=== PATIENT | female | born 1980 | race Caucasian/White ===

== ENCOUNTER → 2016-10-07 | Outpatient (CLI) | payer BC ==
--- NOTE | 2016-10-07 12:43 | XR ---
EXAMINATION TYPE: XR ankle complete RT , 3 VIEWS DATE OF EXAM ORDERED: 10/07/2016 HISTORY: SPRAIN. COMPARISON: None. FINDINGS: No fracture, dislocation or joint effusion is seen. IMPRESSION: NORMAL RIGHT ANKLE.
== END | disposition home or self-care (01) ==
LOC: RADXRMAIN 11:42
PROVIDERS: ATTEND Family Medicine
DX: S93.401A Sprain of unspecified ligament of right ankle, initial encounter (principal); X58.XXXA Exposure to other specified factors, initial encounter

== ENCOUNTER 2020-11-16 09:37 | Emergency (ER) | payer BC ==
[2020-11-16 10:00] VITALS: RESP 18
[2020-11-16] MEDS ORDERED: SODIUM CHLORIDE 0.9% 1,000 ML IV STA (10:24)
--- NOTE | 2020-11-16 10:42 | ED ---
General Adult HPI - General Chief complaint: Syncope Stated complaint: syncope Time Seen by Provider: 11/16/20 09:41 Source: patient, EMS, RN notes reviewed Mode of arrival: EMS Limitations: no limitations - History of Present Illness Initial comments: 40-year-old presents emergency Department with chief complaint of syncopal episode. Patient had try EMS at her house for an infusion for COVID-19. Patient states that she associated can have an IV placed and they were attempting when she passed out. She states she felt very hot flushed feeling community health program coordinator advised patient to laying back. The patient episode 2 in which she became unresponsive, passed out at that time. Patient has no complaints of chest pain, palpitations, nausea vomiting no headache no blurred vision no focal weakness. She's had some intermittent shortness breath with her COVID-19. - Related Data Allergies Allergy/AdvReac Type Severity Reaction Status Date / Time acetaminophen [From Percocet] AdvReac Hallucinati Verified 11/16/20 10:01 ons oxycodone [From Percocet] AdvReac Hallucinati Verified 11/16/20 10:01 ons red dye AdvReac Anaphylaxis Verified 11/16/20 10:01 Review of Systems ROS Statement: Those systems with pertinent positive or pertinent negative responses have been documented in the HPI. ROS Other: All systems not noted in ROS Statement are negative. Past Medical History Additional Past Medical History / Comment(s): migraines History of Any Multi-Drug Resistant Organisms: None Reported Past Surgical History: Appendectomy, Cholecystectomy Past Psychological History: Anxiety Smoking Status: Never smoker Past Alcohol Use History: Occasional Past Drug Use History: Marijuana General Exam Limitations: no limitations General appearance: alert, in no apparent distress Head exam: Present: atraumatic, normocephalic, normal inspection Eye exam: Present: normal appearance, PERRL, EOMI. Absent: scleral icterus, conjunctival injection, periorbital swelling ENT exam: Present: normal exam, normal oropharynx, mucous membranes moist Neck exam: Present: normal inspection, full ROM. Absent: tenderness, meningismus, lymphadenopathy Respiratory exam: Present: normal lung sounds bilaterally. Absent: respiratory distress, wheezes, rales, rhonchi, stridor Cardiovascular Exam: Present: regular rate, normal rhythm, normal heart sounds. Absent: systolic murmur, diastolic murmur, rubs, gallop, clicks Neurological exam: Present: alert, oriented X3, CN II-XII intact Skin exam: Present: warm, dry, intact, normal color. Absent: rash Course Vital Signs 11/16/20 09:53 Temperature 98.6 F Pulse Rate 95 Respiratory 18 Rate Blood Pressure 124/86 O2 Sat by Pulse 97 Oximetry Medical Decision Making - Medical Decision Making 40-year-old presented for episode after having IV place. Vital he been stable, labs unremarkable. Patient does not want infusion will be discharged in stable condition return parameters were discussed. - Lab Data Result diagrams: 11/16/20 10:37 11/16/20 10:37 Lab Results 11/16/20 11/16/20 11/16/20 Range/Units 10:37 10:37 10:37 WBC 5.3 (3.8-10.6) k/uL RBC 3.93 (3.80-5.40) m/uL Hgb 13.3 (11.4-16.0) gm/dL Hct 39.0 (34.0-46.0) % MCV 99.3 (80.0-100.0) fL MCH 33.9 (25.0-35.0) pg MCHC 34.2 (31.0-37.0) g/dL RDW 12.7 (11.5-15.5) % Plt Count 218 (150-450) k/uL MPV 7.4 Neutrophils % 69 % Lymphocytes % 19 % Monocytes % 8 % Eosinophils % 1 % Basophils % 1 % Neutrophils # 3.6 (1.3-7.7) k/uL Lymphocytes # 1.0 (1.0-4.8) k/uL Monocytes # 0.4 (0-1.0) k/uL Eosinophils # 0.1 (0-0.7) k/uL Basophils # 0.0 (0-0.2) k/uL Sodium 139 (137-145) mmol/L Potassium 4.1 (3.5-5.1) mmol/L Chloride 107 (98-107) mmol/L Carbon Dioxide 22 (22-30) mmol/L Anion Gap 10 mmol/L BUN 11 (7-17) mg/dL Creatinine 0.60 (0.52-1.04) mg/dL Est GFR (CKD-EPI)AfAm >90 (>60 ml/min/1.73 sqM) Est GFR (CKD-EPI)NonAf >90 (>60 ml/min/1.73 sqM) Glucose 134 H (74-99) mg/dL Calcium 8.9 (8.4-10.2) mg/dL Total Bilirubin 0.5 (0.2-1.3) mg/dL AST 68 H (14-36) U/L ALT 83 H (4-34) U/L Alkaline Phosphatase 80 (38-126) U/L Troponin I <0.012 (0.000-0.034) ng/mL Total Protein 7.4 (6.3-8.2) g/dL Albumin 4.1 (3.5-5.0) g/dL Disposition Clinical Impression: Vasovagal syncope Disposition: HOME SELF-CARE Condition: Stable Instructions (If sedation given, give patient instructions): Syncope (ED) Additional Instructions: Please return to the Emergency Department if symptoms worsen or any other con cerns. Is patient prescribed a controlled substance at d/c from ED?: No Referrals: Jb Lowry DO [Primary Care Provider] - 1-2 days
[2020-11-16 10:53] LABS: ALT 83 U/L (4-34); AST 68 U/L (14-36); African American GFR (CKD) >90 (>60 ml/min/1.73 sqM); Albumin 4.1 g/dL (3.5-5.0); Alkaline Phosphatase 80 U/L (38-126); Anion Gap 10 mmol/L; Blood Urea Nitrogen 11 mg/dL (7-17); Calcium 8.9 mg/dL (8.4-10.2); Carbon Dioxide 22 mmol/L (22-30); Chloride 107 mmol/L (98-107); Glucose 134 mg/dL (74-99); Non-African American GFR(CKD) >90 (>60 ml/min/1.73 sqM); Potassium 4.1 mmol/L (3.5-5.1); Sodium 139 mmol/L (137-145); Total Bilirubin 0.5 mg/dL (0.2-1.3); Total Protein 7.4 g/dL (6.3-8.2)
[2020-11-16 11:00] LABS: Basophils % (A) 1 %; Eosinophils # (A) 0.1 k/uL (0-0.7); Eosinophils % (A) 1 %; HGB 13.3 gm/dL (11.4-16.0); Lymphocytes % (A) 19 %; MCH 33.9 pg (25.0-35.0); MCHC 34.2 g/dL (31.0-37.0); MCV 99.3 fL (80.0-100.0); Mean Platelet Volume 7.4; Monocytes # (A) 0.4 k/uL (0-1.0); Monocytes % (A) 8 %; Neutrophils # (A) 3.6 k/uL (1.3-7.7); Neutrophils % (A) 69 %; Platelet Count 218 k/uL (150-450); RBC 3.93 m/uL (3.80-5.40); RDW 12.7 % (11.5-15.5); WBC 5.3 k/uL (3.8-10.6)
--- NOTE | 2020-11-16 11:58 | XR ---
EXAMINATION TYPE: XR chest 2V DATE OF EXAM: 11/16/2020 COMPARISON: None HISTORY: 40 year old female syncope TECHNIQUE: PA and lateral views FINDINGS: The cardiomediastinal silhouette, aorta, and pulmonary vasculature are within normal limits. Lungs an d pleural spaces are clear. IMPRESSION: No acute cardiopulmonary process.
[2020-11-16 12:49] VITALS: BP 115/92; PULSE 68; TEMP 98.2
== END 2020-11-16 12:52 | disposition home or self-care (01) ==
LOC: EC 09:37
DX: R55 Syncope and collapse (principal); G43.909 Migraine, unspecified, not intractable, without status migrainosus; F41.9 Anxiety disorder, unspecified; F12.90 Cannabis use, unspecified, uncomplicated
CPT/HCPCS: 36415; 71046; 80053; 84484; 85025; 93005; 96360; 99284

== ENCOUNTER → 2021-06-28 | Outpatient (CLI) | payer BC ==
--- NOTE | 2021-06-28 20:27 | CT ---
EXAMINATION TYPE: CT chest wo con CT DLP: 796.4 mGycm, Automated exposure control for dose reduction was used. DATE OF EXAM: 06/28/2021 2:53 PM COMPARISON: None CLINICAL INDICATION:Female, 40 years old with history of J84.10 Pulmonary fibrosis, pulmonary fibrosi s, bronchitis TECHNIQUE: Multiple axial images were obtained through the chest without IV contrast utilizing high-r esolution CT protocol. FINDINGS: LUNGS: There is no evidence of interstitial thickening, significant groundglass opacity, honeycombing or architectural distortion in the lungs. No bronchiectasis. No acute area of infiltrative or consol idative change. Suggestion of pulmonary nodules within the visualized lung including right upper lobe 5 mm series 3 image 6. LARGE AIRWAYS: Central airways are patent. No dynamic airway collapse on expiratory imaging. HEART: Size within normal limits. MEDIASTINUM: No gross evidence of adenopathy. VASCULATURE: No aortic aneurysm. MUSCULOSKELETAL: No acute osseous abnormalities SOFT TISSUES/LYMPH NODES: Unremarkable. LOWER NECK: No significant findings. UPPER ABDOMEN: Diffuse low-attenuation to the liver parenchyma. IMPRESSION: 1. No evidence for pulmonary fibrosis. 2. Hepatic steatosis. 3. Right upper lobe 5 mm pulmonary nodule. Incidentally detected nodules of this size are generally c onsidered benign in individuals without concomitant risk factors such as smoking history or other ris k factors for malignancy. Follow up imaging is generally not performed, in accordance with Fleischner Society guidelines. In high-risk patients, a [address] thorax can be considered.
== END | disposition home or self-care (01) ==
LOC: RADCTMAIN 14:37
PROVIDERS: ATTEND Internal Medicine Critical Care Medicine
DX: K76.0 Fatty (change of) liver, not elsewhere classified (principal); R91.8 Other nonspecific abnormal finding of lung field
CPT/HCPCS: 71250

== ENCOUNTER → 2021-08-19 | Outpatient (CLI) | payer BC ==
--- NOTE | 2021-08-19 14:04 | US ---
EXAMINATION TYPE: US pelvis complete transvag DATE OF EXAM: 08/19/2021 COMPARISON: NONE CLINICAL HISTORY: R10.31 RIGHT LOWER QUADRANT PAIN. Pelvic pain x 3 months. LMP: 08/02/21. . TECHNIQUE: . Transabdominal and trasnvaginal sonographic images of the pelvis were acquired. Date of LMP: 08/02/21 EXAM MEASUREMENTS: Uterus: 8.0 x 6.3 x 5.2 cm Endometrial Stripe: 0.8 cm Right Ovary: 3.9 x 3.3 x 2.2 cm Left Ovary: 3.3 x 2.4 x 1.7 cm 1. Uterus: Retroverted Multiple nabothian cysts seen in cervix 2. Endometrium: wnl 3. Right Ovary: Complex cyst seen measuring 1.1 x 1.3 x 1.0 cm 4. Left Ovary: wnl 5. Bilateral Adnexa: wnl 6. Posterior cul-de-sac: wnl IMPRESSION: Complex cyst right ovary. Follow-up study in 6 weeks is advised.
== END | disposition home or self-care (01) ==
LOC: RADUSWWP 13:01
PROVIDERS: ATTEND Family Medicine
DX: N83.201 Unspecified ovarian cyst, right side (principal); R10.31 Right lower quadrant pain
CPT/HCPCS: 76830; 76856

== ENCOUNTER → 2021-09-07 | Outpatient (CLI) | payer BC ==
--- NOTE | 2021-09-08 07:24 | US ---
EXAMINATION TYPE: US mass soft tissue chest/back DATE OF EXAM: 09/07/2021 COMPARISON: NONE CLINICAL HISTORY: R22.2 SWELLING, MASS ANS LUMP TRUNK. Swelling, palpable lump right lower back x 3 m onths. Scanned patient's right lower back at palpable area of concern. No abnormalities seen by ultrasound at this time. IMPRESSION: No distinct abnormality appreciated at this time.
== END | disposition home or self-care (01) ==
LOC: RADUSWWP 15:24
PROVIDERS: ATTEND Family Medicine
DX: R22.2 Localized swelling, mass and lump, trunk (principal)

== ENCOUNTER 2022-01-11 08:23 | Day surgery (SDC) | payer BC ==
[2022-01-09 10:11] VITALS: BMI 33.4
--- NOTE | 2022-01-11 07:36 | P.GSHP ---
History of Present Illness H&P Date: 01/11/22 CHIEF COMPLAINT: Colon screen HISTORY OF PRESENT ILLNESS: The patient is a 41-year-old female who presents for colon screen. Lower endoscopy was offered for further evaluation and management. PAST MEDICAL HISTORY: Please see list. PAST SURGICAL HISTORY: Please see list. MEDICATIONS: Please see list. ALLERGIES: Please see list. SOCIAL HISTORY: No illicit drug use FAMILY HISTORY: No reports of Crohn disease or ulcerative colitis. REVIEW OF ORGAN SYSTEMS: CONSTITUTIONAL: No reports of fevers or chills. PHYSICAL EXAM: VITAL SIGNS: Stable GENERAL: Well-developed pleasant in no acute distress. HEENT: No scleral icterus. Extraocular movements grossly intact. Moist buccal mucosa. NECK: Supple without lymphadenopathy. CHEST: Unlabored respirations. Equal bilateral excursions. CARDIOVASCULAR: Regular rate and rhythm. Distal 2+ pulses. ABDOMEN: Soft, nontender, nondistended. MUSCULOSKELETAL: No clubbing, cyanosis, or edema. ASSESSMENT: 1. Colon screen. PLAN: 1. 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, 2 seizures with COVID 11/2020, still has some SOB, change in bowel movements since 11/2021, had infection after appendectomy- was on a lot of antibiotics-[place], History of Any Multi-Drug Resistant Organisms: None Reported Past Surgical History: Appendectomy, Breast Surgery, Cholecystectomy Additional Past Surgical History / Comment(s): breast reduction, colonoscopy Past Anesthesia/Blood Transfusion Reactions: Family History of Problems w/ Anesthesia Additional Past Anesthesia/Blood Transfusion Reaction / Comment(s): mother has diff waking up Smoking Status: Never smoker - Past Family History Mother Family Medical History: No Reported History Medications and Allergies Home Medications Medication Instructions Recorded Confirmed Type Budesonide-Formot 160-4.5 Mcg 2 puff INHALATION BID 01/09/22 01/09/22 History [Symbicort 160-4.5 Mcg Inhaler] Citalopram Hydrobromide 40 mg PO QAM 01/09/22 01/09/22 History [Citalopram HBr] ZOLMitriptan [Zomig] 5 mg PO DIRECTED PRN 01/09/22 01/09/22 History Allergies Allergy/AdvReac Type Severity Reaction Status Date / Time acetaminophen [From Percocet] AdvReac Hallucinati Verified 01/09/22 09:57 ons oxycodone [From Percocet] AdvReac Hallucinati Verified 01/09/22 09:57 ons red dye AdvReac Anaphylaxis Verified 01/09/22 09:57
[~2022-01-11 08:23] MED LIST: LACTATED RINGERS 1,000 ML IV SCH; LIDOCAINE 1% (10MG/ML) FOR IV START INTRADERMA PRN; ONDANSETRON 4 MG/2 ML VIAL IVP PRN
[2022-01-11 09:47] VITALS: TEMP 98.9
[2022-01-11] MEDS ORDERED: MIDAZOLAM 2 MG/2 ML VIAL IVP ONE (09:59)
[2022-01-11] MEDS ORDERED: PROPOFOL 10 MG/ML 20 ML VIAL IV ONE (10:27)
--- NOTE | 2022-01-11 10:58 | P.PCN ---
Date of Procedure: 01/11/22 Description of Procedure: PREOPERATIVE DIAGNOSIS: Change in bowel habits POSTOPERATIVE DIAGNOSIS: Change in bowel habits Proctitis OPERATION: Colonoscopy to the cecum, ileocecal valve and appendiceal orifice. Colonoscopy with cold forceps biopsies, rectum SURGEON: Katie Lagos MD. ANESTHESIA: MAC. INDICATIONS: The patient is a 41-year-old female who presents change in bowel habits. Benefits and risks were described and informed consent was obtained. DESCRIPTION OF PROCEDURE: The patient had undergone Sutab prep. The patient had been brought into the operating room and laid in the left lateral decubitus position. After adequate intravenous sedation, the rectum was examined with 2% lidocaine jelly. No external hemorrhoids were encountered. The rectal tone was within normal limits. No lesions were palpated in the rectal vault. An Olympus colonoscope was advanced until the cecum, ileocecal valve and appendiceal orifice were clearly viewed. The prep was excellent. Scattered diverticulosis was encountered. No colonic polyps were found. Inflammation of the rectum were identified with cold forceps biopsies obtained. Retroflexion of the scope demonstrated grade 1 internal hemorrhoids without active bleeding or inflammation. The colon was desufflated. The patient had tolerated the procedure well. Withdrawal time was over 6 minutes. FINDINGS: Aronchick preparation quality scale 1 (1-5) Internal hemorrhoids, grade 1 No external prolapsed hemorrhoids. No arteriovenous malformations. No adenomatous polyps. Localized proctitis with biopsies obtained RECOMMENDATIONS: Lower endoscopy in 4 years, 2025 Plan - Discharge Summary New Discharge Prescriptions: Continue Citalopram Hydrobromide [Citalopram HBr] 40 mg PO QAM Budesonide-Formot 160-4.5 Mcg [Symbicort 160-4.5 Mcg Inhaler] 2 puff INHALATION BID ZOLMitriptan [Zomig] 5 mg PO DIRECTED PRN PRN Reason: migraines Discharge Medication List Budesonide-Formot 160-4.5 Mcg [Symbicort 160-4.5 Mcg Inhaler] 2 puff INHALATION BID 01/09/22 [History] Citalopram Hydrobromide [Citalopram HBr] 40 mg PO QAM 01/09/22 [History] ZOLMitriptan [Zomig] 5 mg PO DIRECTED PRN 01/09/22 [History] Follow up Appointment(s)/Referral(s): Katie Lagos MD [STAFF PHYSICIAN] - 01/31/22 Patient Instructions/Handouts: Proctitis (DC) Activity/Diet/Wound Care/Special Instructions: Repeat colonoscopy at age [id number] Discharge Disposition: HOME SELF-CARE
[2022-01-11 11:09] VITALS: BP 115/78; PULSE 67; RESP 16
== END 2022-01-11 12:06 | disposition home or self-care (01) ==
LOC: ORWHC2ENDO 08:23
PROVIDERS: ATTEND Surgery Plastic and Reconstructive Surgery
DX: K62.89 Other specified diseases of anus and rectum (principal); K64.0 First degree hemorrhoids; J45.909 Unspecified asthma, uncomplicated; K21.9 Gastro-esophageal reflux disease without esophagitis; G40.909 Epilepsy, unspecified, not intractable, without status epilepticus; G43.909 Migraine, unspecified, not intractable, without status migrainosus; Z86.16 Personal history of COVID-19; Z98.49 Cataract extraction status, unspecified eye; Z98.82 Breast implant status; Z79.51 Long term (current) use of inhaled steroids; Z79.899 Other long term (current) drug therapy; Z88.5 Allergy status to narcotic agent
CPT/HCPCS: 81025; 88305; 45380; J2250; J2704

== ENCOUNTER → 2022-08-24 | Outpatient (CLI) | payer BC ==
--- NOTE | 2022-08-25 07:31 | US ---
EXAMINATION TYPE: US pelvic complete DATE OF EXAM: 08/24/2022 COMPARISON: 08/19/21 CLINICAL INDICATION: Female, 41 years old with history of N83.201 UNSPECIFIED OVARIAN CYST, RIGHT DOTTIE E; Hx of rt ovarian cyst. TECHNIQUE: . Transabdominal sonographic images of the pelvis were acquired. Date of LMP: 08/20/22 EXAM MEASUREMENTS: Uterus: 7.9 x 5.7 x 6.3 cm Endometrial Stripe: 0.5 cm Right Ovary: 3.4 x 3.0 x 2.9 cm Left Ovary: 4.1 x 3.1 x 2.9 cm 1. Uterus: Anteverted wnl 2. Endometrium: wnl 3. Right Ovary: wnl 4. Left Ovary: wnl Spectral, color and waveform doppler imaging shows good arterial and venous flow within the ovaries ; there is no evidence for ovarian torsion. 5. Bilateral Adnexa: wnl 6. Posterior cul-de-sac: wnl No obvious abnormality visualized IMPRESSION: No discrete abnormality appreciated at this time.
== END | disposition home or self-care (01) ==
LOC: RADUSWWP 16:07
PROVIDERS: ATTEND Family Medicine
DX: N83.201 Unspecified ovarian cyst, right side (principal)
CPT/HCPCS: 76856

== ENCOUNTER → 2023-02-21 | Outpatient (CLI) | payer BC ==
--- NOTE | 2023-02-21 14:34 | USB ---
Reason for Exam: Clinical finding. Patient History: Menarche at age 14. First Full-Term at age 28. Premenopausal. Hormonal Contraceptives for 3 years from age 14 until age 17. 2017, Bilateral Reduction. Risk Values: Precious 5 year model risk: 0.7%. NCI Lifetime model risk: 10.0%. Technique: Method: Targeted. Prior Study Comparison: 02/21/2016 Bilateral Diagnostic Mammogram, [facility]. Findings: The area of palpable concern of the right breast, the axilla of the right breast and the retroareolar of the right breast were scanned. Elongated subcutaneous collection measuring 1.7 cm in length by 0.3 cm. This likely reflects a sebaceous cyst. Further management recommended by the patient's personal physician. Overall Assessment: Benign, BI-RAD 2 Management: Screening Mammogram of both breasts in 1 year. A clinical breast exam by your physician is recommended on an annual basis and results should be correlated with mammographic findings. This exam should not preclude additional follow-up of suspicious palpable abnormalities. Results were given to the patient verbally at the time of exam. Electronically signed and approved by: Tulio Villarreal M.D. Radiologis
--- NOTE | 2023-02-21 14:35 | MM ---
Reason for Exam: Clinical finding. Last mammogram was performed 7 year(s) and 0 month(s) ago. Patient History: Menarche at age 14. First Full-Term at age 28. Premenopausal. Hormonal Contraceptives for 3 years from age 14 until age 17. 2017, Bilateral Reduction. Risk Values: Precious 5 year model risk: 0.7%. NCI Lifetime model risk: 10.0%. Tissue Density: The breast tissue is heterogeneously dense. This may lower the sensitivity of mammography. Findings: Analyzed By CAD. No discrete abnormality seen including area of concern right breast. Ultrasound is recommended. Overall Assessment: Incomplete: need additional imaging evaluation, BI-RAD 0 Management: Diagnostic Breast Ultrasound of the right breast. . Results were given to the patient verbally at the time of exam. Patient should continue monthly self-breast exams. A clinical breast exam by your physician is recommended on an annual basis. This exam should not preclude additional follow-up of suspicious palpable abnormalities. Note on Precious scores and lifetime risk: 1. A Precious score greater than 3% is considered moderate risk. If this is the case, consider specialist referral to assess eligibility for a risk reducing agent. 2. If overall lifetime risk for the development of breast cancer is 20% or higher, the patient may qualify for future screening with alternating mammogram and breast MRI. Electronically signed and approved by: Tulio Villarreal M.D. Radiologis
== END | disposition home or self-care (01) ==
LOC: RADMAMWWP 13:36
PROVIDERS: ATTEND Obstetrics & Gynecology
DX: N63.10 Unspecified lump in the right breast, unspecified quadrant (principal); R92.333 Mammographic heterogeneous density, bilateral breasts
CPT/HCPCS: 77062; 77066

== ENCOUNTER → 2024-01-03 | Outpatient (CLI) | payer BC ==
[2024-01-03 19:41] LABS: Basophils # (A) 0.04 X 10*3/uL (0.00-0.10); Basophils % (A) 0.5 %; Eosinophils # (A) 0.09 X 10*3/uL (0.04-0.35); Eosinophils % (A) 1.2 %; HCT 38.5 % (37.2-46.3); Lymphocytes # (A) 2.26 X 10*3/uL (0.90-5.00); Lymphocytes % (A) 30.1 %; MCH 32.4 pg (27.0-32.0); MCHC 33.8 g/dL (32.0-37.0); Mean Platelet Volume 10.1 FL (9.5-12.2); Monocytes % (A) 6.7 %; NRBC Per 100 WBC 0 X 10*3/uL (0.00-0.01); Neutrophils # (A) 4.58 X 10*3/uL (1.80-7.70); Neutrophils % (A) 61.1 %; Platelet Count 330 X 10*3/uL (140-440); RBC 4.01 X 10*6/uL (4.10-5.20); RDW 11.9 % (11.5-14.5)
[2024-01-03 20:19] LABS: Erythrocyte Sedimentation Rate 8 mm/Hr (0-20)
[2024-01-03 21:29] LABS: % Iron Saturation 19.39 (12.00-45.00); Iron 64 UG/DL (50-170); Rheumatoid Factor, Qnt <15 IU/mL (0-15); T4, Free (Free Thyroxine) 1.03 ng/dL (0.80-1.80); Total Iron Binding Capacity 330 UG/DL (228-460)
[2024-01-03 21:46] LABS: Cyclic Citrull Pep IgG Unit <1.5 U/mL (<=3.9); Cyclic Citrullinated Pep IgG Negative
[2024-01-03 21:56] LABS: Anti-Smith Ab Interp Negative (Negative); JO-1 IgG Antibody <0.2 AI
[2024-01-04 12:41] LABS: HLA B27 NEGATIVE
[2024-01-05 18:46] LABS: Myoglobin 22 ng/mL (<=58)
[2024-01-07 10:42] LABS: Aldolase 3.6 U/L (1.2-7.6)
[2024-01-07 11:00] LABS: Vit B1(Thiamine) 40 ug/L (38-122)
== END | disposition home or self-care (01) ==
LOC: LABWHC1 14:48
PROVIDERS: ATTEND Nurse Practitioner Family
DX: M25.50 Pain in unspecified joint (principal)
CPT/HCPCS: 36415; 82085; 82550; 82552; 82607; 82746; 83540; 83550; 83735; 83874; 84425; 84439; 84443; 85025; 85652; 86038; 86141; 86160; 86200; 86235; 86431; 86812

== ENCOUNTER → 2024-06-04 | Outpatient (CLI) | payer BC ==
[2024-06-04 12:16] LABS: Follicle Stimulating Hormone 13.2 mIU/mL; Luteinizing Hormone 15.9 mIU/mL
== END | disposition home or self-care (01) ==
LOC: LABWHC1 08:05
PROVIDERS: ATTEND Family Medicine
DX: N92.1 Excessive and frequent menstruation with irregular cycle (principal)
CPT/HCPCS: 36415; 82150; 82533; 82627; 82670; 83001; 83002; 83690; 84144; 84146; 84270; 84403; 84482; 86800

== ENCOUNTER → 2024-08-25 | Outpatient (CLI) | payer BC ==
--- NOTE | 2024-08-25 14:26 | MM ---
Reason for Exam: Screening (asymptomatic). Last mammogram was performed 1 year(s) and 6 month(s) ago. Patient History: Menarche at age 14. First Full-Term at age 28. Premenopausal. Hormonal Contraceptives for 3 years from age 14 until age 17. 2017, Bilateral Reduction. Last menstrual period: 07/25/2024 Risk Values: Precious 5 year model risk: 0.7%. NCI Lifetime model risk: 9.9%. Prior Study Comparison: 02/21/2016 Bilateral Diagnostic Mammogram, [facility]. 02/21/2023 Bilateral MG 3D diag mammo w/cad GEOVANNI, [facility]. Tissue Density: There are scattered areas of fibroglandular density. Findings: Analyzed By CAD. Right breast: There is no suspicious group of microcalcifications or new suspicious mass. Left breast: There is no suspicious group of microcalcifications or new suspicious mass. Overall Assessment: Negative, BI-RAD 1 Management: Screening Mammogram of both breasts in [address] [facility] will attempt to contact patient to return for supplemental views and ultrasound if indicated. Patient should continue monthly self-breast exams. A clinical breast exam by your physician is recommended on an annual basis. This exam should not preclude additional follow-up of suspicious palpable abnormalities. Note on Precious scores and lifetime risk: 1. A Precious score greater than 3% is considered moderate risk. If this is the case, consider specialist referral to assess eligibility for a risk reducing agent. 2. If overall lifetime risk for the development of breast cancer is 20% or higher, the patient may qualify for future screening with alternating mammogram and breast MRI. [facility], , 08/25/2024 2:24 PM. Electronically signed and approved by: Eze Biggs DO
== END | disposition home or self-care (01) ==
LOC: RADMAMWWP 13:52
PROVIDERS: ATTEND Family Medicine
DX: Z12.31 Encounter for screening mammogram for malignant neoplasm of breast (principal); R92.323 Mammographic fibroglandular density, bilateral breasts; Z92.0 Personal history of contraception
CPT/HCPCS: 77063; 77067